=== PATIENT | male | born 1965 | race Caucasian/White ===

== ENCOUNTER 2024-07-27 01:17 | Day surgery (SDC) | payer BC, SELFPAY ==
[2024-07-10 12:16] VITALS: BMI 30.3
--- OUTSIDE RECORDS SUMMARY | 2024-07-27 01:20 | XMS_ITS | Referral Summary ---
Author Organization [facility] Address [address] [place] [address] Care Team Providers Care Hand Profiler Name Role Phone Stanley Gross MD Primary Care Provider [phone] Source Comments [facility],non-owned Affiliates and Associated Physician Practices is amultiple site organization consisting of ambulatory clinics and hospital sitesin [place], [place], [place] and [place]. This disclosure is being madepursuant to the Care Everywhere program and may not contain all information available regarding this patient. Last updated 18.[facility] Active Problems Problem Noted Date Diagnosed Date Hyperlipidemia 03/20/2015 Cerebral infarction 03/19/2015 Social History Tobacco Use Types Packs/Day Years Used Date Smoking Tobacco: Never Smokeless Tobacco: Never Alcohol Use Standard Drinks/Week Comments Yes 1.7 (1 standard drink = 0.6 oz p ure alcohol) Sex and Gender Information Value Date Recorded Sex Assigned at Not on file Gender Identity Not on file Sexual Orientation Not on file Last Filed Vital Signs Vital Sign Reading Time Taken Comments Blood Pressure 143/88 05/16/2015 8:55 AM [employer] Pulse 57 05/16/2015 8:55 AM [employer] Temperature 36.3 C (97.3 F) 05/16/2015 8:55 AM [employer] Respiratory Rate 17 03/20/2015 10:00 AM CDT Oxygen Saturation 97% 03/20/2015 10:00 AM CDT Inhaled Oxygen Concentration - - Weight 91.6 kg (202 lb) 05/16/2015 8:55 AM [employer] Height 177.8 cm (5' 10 ) 05/16/2015 8:55 AM [employer] Body Mass Index 28.98 05/16/2015 8:55 AM [employer] Plan of Treatment Not on file Procedures Procedure Name Priority Date/Time Associated Diagnosis Comments LIPID PROFILE Routine 03/19/2015 2:40 AM CDT from Last 3 Months or Most Recently Relevant to Health Maintenance Results * (ABNORMAL) LIPID PROFILE (03/19/2015 2:40 AM CDT) Cholesterol Total 169 <200 mg/dL [facility] HDL 52 >40 mg/dL [facility] Comment: ATP III Classification of HDL Cholesterol: <40 mg/dL: Considered a major risk factor. >60 mg/dL: Considered a negative risk factor. LDL Calculated 101(H) <100 mg/dL [facility] Comment: ATP III Classification of LDL Cholesterol: <100 mg/dL: Optimal 100 - 129 mg/dL: Near Optimal/Above Optimal 130 - 159 mg/dL: Borderline High 160 - 189 mg/dL: High >190 mg/dL: Very High Triglycerides 82 <150 mg/dL [facility] Comment: ATP III Classification of Triglycerides: <150 mg/dL: Normal 150 - 199 mg/dL: Borderline High 200 - 400 mg/dL: High >500 mg/dL: Very High Blood specimen (specimen) BLOOD SPECIMEN / Unknown 03/19/2015 2:40 AM CDT 03/19/2015 2:58 AM CDT Buck Mccurdy MD LAB - CHEMISTRY ADEOLA JIMENEZ [facility] ([place], [place]) Organization Address [facility]/State/[facility] [[email or web address]] Co de Phone Number [address] [phone] from Last 3 Months or Most Recently Relevant to Health Maintenance Care Teams Hand Profiler Relationship Specialty Start Date End Date Stanley Gross MD [facility] [place] [address] PCP - General 03/18/15
--- OUTSIDE RECORDS SUMMARY | 2024-07-27 01:20 | XMS_ITS | Patient Health Summary ---
Author Organization [facility] Address [address] [place] [address] Care Team Providers Care Tech Ed Teacher Name Role Phone Stanley Gross MD Primary Care Provider [phone] Note from [facility],non-owned Affiliates and Associated Physician Practices is amultiple site organization consisting of ambulatory clinics and hospital sitesin [place], [place], [place] and [place]. This disclosure is being madepursuant to the Care Everywhere program and may not contain all information available regarding this patient. Last updated 18.[facility] Active Problems Problem Noted Date Diagnosed [...] Comments Blood Pressure 143/88 05/16/2015 8:55 AM DRILL RUNNER Pulse 57 05/16/2015 8:55 AM DRILL RUNNER Temperature 36.3 C (97.3 F) 05/16/2015 8:55 AM DRILL RUNNER Respiratory Rate 17 03/20/2015 10:00 AM CDT Oxygen Saturation 97% 03/20/2015 10:00 AM CDT Inhaled Oxygen Concentration - - Weight 91.6 kg (202 lb) 05/16/2015 8:55 AM DRILL RUNNER Height 177.8 cm (5' 10 ) 05/16/2015 8:55 AM DRILL RUNNER Body Mass Index 28.98 05/16/2015 8:55 AM DRILL RUNNER Procedures * PROC LOOP DEVICE CHECK (REMOTE)(Performed 11/10/2015) * PROC LOOP DEVICE CHECK (REMOTE)(Performed 10/19/2015) * PROC LOOP DEVICE CHECK (REMOTE)(Performed 09/17/2015) * PROC LOOP DEVICE CHECK (REMOTE)(Performed 08/15/2015) * PROC LOOP DEVICE CHECK (REMOTE)(Performed 06/28/2015) * PROC LOOP DEVICE CHECK (REMOTE)(Performed 06/03/2015) * EP LOOP RECORDER IMPLANT(Performed 03/20/2015) * MAGNESIUM BLOOD(Performed 03/20/2015) * BASIC METABOLIC PANEL (CALCIUM TOTAL)(Performed 03/20/2015) * PHOSPHORUS BLOOD(Performed 03/20/2015) * CBC W AUTO DIFFERENTIAL(Performed 03/20/2015) * CBC W AUTO DIFFERENTIAL(Performed 03/20/2015) * TROPONIN I(Performed 03/19/2015) * CK + CKMB PANEL(Performed 03/19/2015) * MRI BRAIN WO CONTRAST(Performed 03/19/2015) * TROPONIN I(Performed 03/19/2015) * CK + CKMB PANEL(Performed 03/19/2015) * DRUG ABUSE PANEL 10-20+ETHANOL URINE NO CONFIRM(Performed 03/19/2015) * URINALYSIS W/MICROSCOPIC NO CULTURE(Performed 03/19/2015) * HEMOGLOBIN A1C(Performed 03/19/2015) * PT-INR [facility](Performed 03/19/2015) * LIPID PROFILE(Performed 03/19/2015) * BASIC METABOLIC PANEL (CALCIUM TOTAL)(Performed 03/19/2015) * PHOSPHORUS BLOOD(Performed 03/19/2015) * MAGNESIUM BLOOD(Performed 03/19/2015) * CBC W AUTO DIFFERENTIAL(Performed 03/19/2015) * CBC W AUTO DIFFERENTIAL(Performed 03/19/2015) * CT ANGIO BRAIN AND NECK(Performed 03/19/2015) * CREATININE BLOOD - POCT (IP) [facility](Performed 03/19/2015) * TROPONIN I(Performed 03/19/2015) * CK + CKMB PANEL(Performed 03/19/2015) * XR CHEST 1VW PORTABLE(Performed 03/19/2015) * ECHO COMPLETE(Performed 03/19/2015) * ECHO SANDRA TRANSESOPHAGEAL(Performed 03/19/2015) * EKG 12-LEAD(Performed 03/19/2015) Results * PROC LOOP DEVICE CHECK (REMOTE) (11/10/2015 11:21 AM CDT) Narrative [facility] - 11/10/2015 11:21 AM CDT 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 The remote transmission from October 15 showed the following results: Baseline Strip: Sinus rhythm Episodes Total: 0, Symptomatic Episodes: 0 Evaluation of Episodes: No events during monitoring period. Please contact me if you have any questions or concerns, thank you. Procedure Note ProviderMega MD - 11/19/2017 Neftali Frank is undergoing termite control servicer monitoring with a Reveal implantableloop recorder. The remote transmission from October 15 showed the followingresults: Baseline Strip: Sinus rhythm Episodes Total: 0, Symptomatic Episodes: 0 Evaluation of Episodes: No events during monitoring period. Please contact me if you have any questions or concerns, thank you. Mateo Johnson CD PROCEDURE/MINOR SURG ICAL ORDERABLES Performing Organization Address [facility] de Phone Number [facility] * PROC LOOP DEVICE CHECK (REMOTE) (10/19/2015 2:28 PM CDT) Narrative [facility] - 10/19/2015 2:28 PM CDT Neftali Frank is undergoing shelter monitoring with a Reveal implantable loop recorder. The remote transmission from September 15 showed the following results: Baseline Strip: Sinus rhythm Episodes Total: 0, Symptomatic Episodes: 0 Evaluation of Episodes: No events during monitoring period. Please contact me if you have any questions or concerns, thank you. Procedure Note ProviderMega MD - 11/19/2017 Neftali Frank is undergoing shelter monitoring with a Reveal implantableloop recorder. The remote transmission from September 15 showed the followingresults: Baseline Strip: Sinus rhythm Episodes Total: 0, Symptomatic Episodes: 0 Evaluation of Episodes: No events during monitoring period. Please contact me if you have any questions or concerns, thank you. Mateo Johnson CD PROCEDURE/MINOR SURG ICAL ORDERABLES Performing Organization Address [facility] de Phone Number [facility] * PROC LOOP DEVICE CHECK (REMOTE) (09/17/2015 3:46 PM CDT) Narrative [facility] - 09/17/2015 3:46 PM CDT Neftali Frank is undergoing shelter monitoring with a Reveal implantable loop recorder. The remote transmission from August 16 showed the following results: Baseline Strip: Sinus rhythm Episodes Total: 0, Symptomatic Episodes: 0 Evaluation of Episodes: No events during monitoring period. Please contact me if you have any questions or concerns, thank you. Procedure Note ProviderMega MD - 11/19/2017 Neftali rFank is undergoing shelter monitoring with a Reveal implantableloop recorder. The remote transmission from August 16 showed the followingresults: Baseline Strip: Sinus rhythm Episodes Total: 0, Symptomatic Episodes: 0 Evaluation of Episodes: No events during monitoring period. Please contact me if you have any questions or concerns, thank you. 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 The remote transmission from July 18 showed the following results: Baseline Strip: Sinus rhythm Episodes Total: 0, Symptomatic Episodes: 0 Evaluation of Episodes: No events during monitoring period. Please contact me if you have any questions or concerns, thank you. Procedure Note ProviderMega MD - 11/19/2017 Neftali Frank is undergoing termite control servicer monitoring with a Reveal implantableloop recorder. The remote transmission from July 18 showed thefollowing results: Baseline Strip: Sinus rhythm Episodes Total: 0, Symptomatic Episodes: 0 Evaluation of Episodes: No events during monitoring period. Please contact me if you have any questions or concerns, thank you. Mateo Johnson CD PROCEDURE/MINOR SURG ICAL ORDERABLES Performing Organization Address [facility] Co de Phone Number [facility] * PROC LOOP DEVICE CHECK (REMOTE) (06/28/2015 8:36 AM DRILL RUNNER) Narrative [facility] - 06/28/2015 8:36 AM DRILL RUNNER Neftali Frank is undergoing shelter monitoring with a Reveal implantable loop recorder. The remote transmission from June 18 showed the following results: Baseline Strip: Sinus rhythm Episodes Total: 0, Symptomatic Episodes: 0 Evaluation of Episodes: No events during monitoring period. Please contact me if you have any questions or concerns, thank you. Procedure Note ProviderMega MD - 11/19/2017 Neftali Frank is undergoing shelter monitoring with a Reveal implantableloop recorder. The remote transmission from June 18 showed thefollowing results: Baseline Strip: Sinus rhythm Episodes Total: 0, Symptomatic Episodes: 0 Evaluation of Episodes: No events during monitoring period. Please contact me if you have any questions or concerns, thank you. 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 The remote transmission from April 19 showed the following results: Baseline Strip: Sinus rhythm. Episodes Total: 0, Symptomatic Episodes: 0 Evaluation of Episodes: No events during monitoring period. Please contact me if you have any questions or concerns, thank you. Procedure Note ProviderMega MD - 11/19/2017 Neftali Frank is undergoing shelter monitoring with a Reveal implantableloop recorder. The remote transmission from April 19 showed thefollowing results: Baseline Strip: Sinus rhythm. Episodes Total: 0, Symptomatic Episodes: 0 Evaluation of Episodes: No events during monitoring period. Please contact me if you have any questions or concerns, thank you. Mateo Johnson CD PROCEDURE/MINOR SURG ICAL ORDERABLES Performing Organization Address [facility] Co de Phone Number [facility] * EP LOOP RECORDER INSERT (03/20/2015 11:59 AM CDT) Anatomical Region Laterality Modality Other Narrative 03/20/2015 11:30 AM CDT ELECTROPHYSIOLOGY LAB DEVICE IMPLANTATION REPORT 03/20/2015 Procedure Performed: Implantation of an implantable vehicle monitor technician. Indication: Neftali Frank is an otherwise healthy 49 y.o. year old man with no past medical history. He is admitted with acute ischemic stroke suspected to be of embolic origin. Work up so far has been negative for systemic thrombus/emboli. He is hence referred for implantation of a loop recorder for diagnosis of possible occult atrial fibrillation. Operators: 1. Mateo Johnson MD 2. Matt Godinez MD Medications: 1% Lidocaine was utilized for local anesthetic. Procedure: The risks and benefits of the procedure were discussed with the patient and the patient consented for the procedure. The patient presented to the electrophysiology laboratory in a fasting, nonsedated state. The patient was prepped and draped in the usual sterile fashion for device implantation. 1% lidocaine was administered to the skin and subcutaneous tissues in the left parasternal area for local anesthesia. The supplied puncture blade was then used to make a small incision at the left 4th intercostal space just lateral to the sternum. The supplied tunneling tool was then used to make a pocket for the vehicle monitor technician. The vehicle monitor technician was then inserted into the pocket. Testing of the device confirmed adequate signal and the incision was then covered with sterile aquacel dressing. The patient tolerated the procedure well; there were no apparent complications at the end of the procedure. Device Information: The implantable vehicle monitor technician is a Medtronic Reveal Linq with a serial number of [id number], and model number [id number] 11. VT parameter is set at 182 bpm for 16 beats. Bradycardia parameter is set at 30 bpm for 4 beats. R waves were measured at 0.86 mV. Impression: 1. Successful implantation of a Medtronic Reveal Linq ICM. Plan: The outer dressing needs to stay on and dry for 1 week after which it may be removed. Patient has been given instructions regarding how to upload the information gathered from his loop recorder. Please attach the following to the patient's discharge instructions at time of discharge: Loop recorder discharge instructions: 1. The outer dressing needs to stay on and dry for 1 week after which it may be removed. Water can com in contact with the dressing, but refrain from completely submerging the dressing in water. 2. You can not completely submerge the site where you had your device placed in water for a total of 4 weeks. 3. Please let us know if you develop any pain at the site of the loop implantation, or if you develop a fever or discharge from the site. Call us if you have any questions: Working hours (Wednesday - Wednesday 7AM - 5PM) : [phone] (cardiology clinic at the [facility]) After working hours and weekends (5PM - 7AM): [phone], and ask to speak with the nail sticker electrician substation. Matt Godinez MD System Archive Analyst 03/20/2015 Procedure Note Provider, MD Mega - 11/19/2017 ELECTROPHYSIOLOGY LAB DEVICE IMPLANTATION REPORT 03/20/2015 Procedure Performed: Implantation of an implantable vehicle monitor technician. Indication: Neftali Frank is an otherwise healthy 49 y.o. year oldcaucasian man with no past medical history. He is admitted with acuteischemic stroke suspected to be of embolic origin. Work up so far has beennegative for systemic thrombus/emboli. He is hence referred for implantation of a loop recorder for diagnosis ofpossible occult atrial fibrillation. Operators: 1. Mateo Johnson MD 2. Matt Godinez MD Medications: 1% Lidocaine was utilized for local anesthetic. Procedure: The risks and benefits of the procedure were discussed withthe patient and the patient consented for the procedure. The patientpresented to the electrophysiology laboratory in a fasting, nonsedatedstate. The patient was prepped and draped in the usual sterile fashion for device implantation. 1% lidocainewas administered to the skin and subcutaneous tissues in the leftparasternal area for local anesthesia. The supplied puncture blade wasthen used to make a small incision at the left 4th intercostal space just lateral to the sternum. The suppliedtunneling tool was then used to make a pocket for the vehicle monitor technician.The vehicle monitor technician was then inserted into the pocket. Testing of thedevice confirmed adequate signal and the incision was then covered with sterile aquacel dressing. The patienttolerated the procedure well; there were no apparent complications at theend of the procedure. Device Information: The implantable vehicle monitor technician is a Medtronic Reveal Linq with a serialnumber of [id number], and model number [id number] 11. VT parameter is set at 182 bpm for 16 beats. Bradycardia parameter is set at 30 bpm for 4 beats. R waves were measured at 0.86 mV. Impression: 1. Successful implantation of a Medtronic Reveal Linq ICM. Plan: The outer dressing needs to stay on and dry for 1 week after which it maybe removed. Patient has been given instructions regarding how to upload theinformation gathered from his loop recorder. Please attach the following to the patient's discharge instructions attime of discharge: Loop recorder discharge instructions: 1. The outer dressing needs to stay on and dry for 1 week after which itmay be removed. Water can com in contact with the dressing, but refrainfrom completely submerging the dressing in water. 2. You can not completely submerge the site where you had your deviceplaced in water for a total of 4 weeks. 3. Please let us know if you develop any pain at the site of the loopimplantation, or if you develop a fever or discharge from the site. Call us if you have any questions: Working hours (Wednesday - Wednesday 7AM - 5PM) : [phone] [facility] After working hours and weekends (5PM - 7AM): [phone], and ask tospeak with the nail sticker electrician substation. Matt Godinez MD System Archive Analyst 03/20/2015 Buck Mccurdy MD ELECTROPHYS RADIANT * CBC W AUTO DIFFERENTIAL (03/20/2015 3:45 AM CDT) Only the most recent of4 resultswithin the time period is included. Blood specimen (specimen) BLOOD SPECIMEN / Unknown 03/20/2015 3:45 AM CDT Narrative [facility] - 03/20/2015 4:00 AM CDT The following orders were created for panel order CBC w Differential. Procedure Abnormality Status --------- ------ CBC WITH DIFFERENTIAL[[id number]] Abnormal Final result Please view results for these tests on the individual orders. Buck Mccurdy MD LAB - HEMATOLOGY ORD ERABLES [facility] [address] [place] [address], [facility] * BASIC METABOLIC PANEL (CALCIUM TOTAL) (03/20/2015 3:45 AM CDT) Only the most recent of2 resultswithin the time period is included. BUN 11 7 - 26 mg/dL [facility] Creatinine 1.2 0.6 - 1.2 mg/dL [facility] Sodium 141 136 - 145 mmol/L [facility] Potassium 4.0 3.5 - 4.5 mmol/L [facility] Chloride 105 98 - 107 mmol/L [facility] CO2 27 22 - 29 mmol/L [facility] Glucose 102 70 - 115 mg/dL [facility] Calcium 9.4 8.4 - 10.2 mg/dL [facility] Anion Gap 13 8 - 18 [facility] BUN/Creatinine Ratio 9 7 - 23 [facility] Osmolality Calculated 277 270 - 300 mOsm/kg [facility] eGFR >60 >60 mL/min/1.7 3 m2 [facility] Blood specimen (specimen) BLOOD SPECIMEN / Unknown 03/20/2015 3:45 AM CDT 03/20/2015 3:55 AM CDT Buck Mccurdy MD LAB - CHEMISTRY [facility] Performing Organization Address City/[facility]/ZIP Co de Phone Number [address] [phone] * PHOSPHORUS BLOOD (03/20/2015 3:45 AM CDT) Only the most recent of2 resultswithin the time period is included. Phosphorus 3.2 2.3 - 4.7 mg/dL [facility] Blood specimen (specimen) BLOOD SPECIMEN / Unknown 03/20/2015 3:45 AM CDT 03/20/2015 3:55 AM CDT Buck Mccurdy MD LAB - CHEMISTRY [facility] [address] [phone] * MAGNESIUM BLOOD (03/20/2015 3:45 AM CDT) Only the most recent of2 resultswithin the time period is included. Magnesium 2.1 1.6 - 2.6 mg/dL [facility] Blood specimen (specimen) BLOOD SPECIMEN / Unknown 03/20/2015 3:45 AM CDT 03/20/2015 3:55 AM CDT Buck Mccurdy MD LAB - CHEMISTRY [facility] Performing Organization Address [facility] Co de Phone Number [address] [phone] * TROPONIN I (03/19/2015 4:25 PM CDT) Only the most recent of3 resultswithin the time period is included. Troponin I <0.010 <0.032 ng/mL [facility] Blood specimen (specimen) BLOOD SPECIMEN / Unknown 03/19/2015 4:25 PM CDT 03/19/2015 4:35 PM CDT Buck Mccurdy MD LAB - CHEMISTRY [facility] Performing Organization Address [facility] de Phone Number [address] [phone] * CK + CKMB PANEL (03/19/2015 4:25 PM CDT) Only the most recent of3 resultswithin the time period is included. CK Total 151 30 - 200 Units/L [facility] CK-MB 1.4 0.0 - 6.6 ng/mL [facility] Blood specimen (specimen) BLOOD SPECIMEN / Unknown 03/19/2015 4:25 PM CDT 03/19/2015 4:35 PM CDT Buck Mccurdy MD LAB - CHEMISTRY [facility] Performing Organization Address [facility] Co de Phone Number [address] [phone] * MRI BRAIN WO CONTRAST (03/19/2015 12:09 PM CDT) Anatomical Region Laterality Modality Head Other Impressions 03/19/2015 12:37 PM CDT IMPRESSION: 1. Small acute to early subacute infarction in the inferior left cerebellar hemisphere in the territory of the left posterior inferior cerebellar artery (PICA). FLAIR hyperintensity in the left posterolateral medulla is also likely related to the small left PICA territory infarction. No MR evidence of hemorrhagic conversion or significant mass effect. These results were discussed with Dr. Mayorga of neurology by Dr. Nunez on 03/19/15 at 12:30 PM. This report was electronically signed by WOLF NUNEZ M.D. on 03/19/2015 12:37 PM . Narrative 03/19/2015 12:37 PM CDT EXAMINATION: Magnetic resonance imaging (MRI) of the brain without contrast HISTORY: Left hemiataxia and left upper extremity tingling. TECHNIQUE: MRI of the brain was performed without intravenous gadolinium contrast according to standard protocol. FINDINGS: Comparison is made to prior CT angiogram of the head and neck from 03/19/2015. There is a small linear focus of diffusion restriction in the inferior left cerebellar hemisphere with associated T2/FLAIR hyperintensity consistent with small acute infarction (series 41 image 5 and series 301 image 48). No associated mass effect or hemorrhagic conversion. There is a tiny focus of FLAIR hyperintensity in the left posterolateral medulla (series 401 image 3) without clear diffusion restriction. Ventricles are of normal size, shape, and morphology. A few scattered periventricular and subcortical FLAIR hyperintensities are nonspecific but can be seen in setting of small vessel ischemic disease. The corpus callosum and sella appear normal. The craniocervical junction appears normal. The visualized portions of the orbits, mastoids and paranasal sinuses appear normal. Normal flow voids are demonstrated in the carotid arteries and basilar artery. The calvarium and visualized cervical spine appear normal. Procedure Note Wolf Nunez MD - 09/11/2017 EXAMINATION: Magnetic resonance imaging (MRI) of the brain withoutcontrast HISTORY: Left hemiataxia and left upper extremity tingling. TECHNIQUE: MRI of the brain was performed without intravenous gadoliniumcontrast according to standard protocol. FINDINGS: Comparison is made to prior CT angiogram of the head and neckfrom 03/19/2015. There is a small linear focus of diffusion restriction in the inferiorleft cerebellar hemisphere with associated T2/FLAIR hyperintensityconsistent with small acute infarction (series 41 image 5 and series 301image 48). No associated mass effect or hemorrhagic conversion. There is a tiny focus of FLAIR hyperintensity inthe left posterolateral medulla (series 401 image 3) without cleardiffusion restriction. Ventricles are of normal size, shape, andmorphology. A few scattered periventricular and subcortical FLAIR hyperintensities are nonspecific but can be seen insetting of small vessel ischemic disease. The corpus callosum and sellaappear normal. The craniocervical junction appears normal. The visualized portions of the orbits, mastoids and paranasal sinusesappear normal. Normal flow voids are demonstrated in the carotid arteriesand basilar artery. The calvarium and visualized cervical spine appearnormal. IMPRESSION IMPRESSION: 1. Small acute to early subacute infarction in the inferior leftcerebellar hemisphere in the territory of the left posterior inferiorcerebellar artery (PICA). FLAIR hyperintensity in the left posterolateralmedulla is also likely related to the small left PICA territory infarction. No MR evidence of hemorrhagic conversionor significant mass effect. These results were discussed with Dr. Mayorga of neurology by Dr. Nunez on03/19/15 at 12:30 PM. This report was electronically signed by WOLF NUNEZ M.D. on 03/19/201512:37 PM . Buck Mccurdy MD MR ORDERABLES * (ABNORMAL) URINALYSIS W/MICROSCOPIC NO CULTURE (03/19/2015 5:10 AM CDT) Color UA Yellow Straw, Yellow, Colorless, Light Yellow [facility] Clarity UA Clear Clear [facility] Specific [place] UA 1.040(H) 1.001 - 1.030 [facility] pH UA 7.5 5.0 - 8.0 [facility] Protein UA Negative <=20 mg/dL [facility] Glucose UA Negative Negative mg/dL [facility] Ketone UA Trace(A) Negative mg/dL [facility] Bilirubin UA Negative Negative mg/dL [facility] Blood UA Negative Negative [facility] Nitrite UA Negative Negative [facility] Leukocyte Esterase Negative Negative [facility] Urobilinogen UA <2.0 <2.0 mg/dL [facility] RBC UA 3 0 - 8 /HPF [facility] WBC UA 1 0 - 2 /HPF [facility] Squamous Epithelial Cells UA <1 0 - 1 /HPF [facility] Mucus UA Moderate(A) None /LPF [facility] Urine specimen (specimen) URINE SPECIMEN OBTAINED BY CLEAN CATCH PROCEDURE / Unknown 03/19/2015 5:10 AM CDT 03/19/2015 5:10 AM CDT Buck Mccurdy MD LAB - URINALYSIS ORD ERABLES [address] [phone] * DRUG ABUSE PANEL 10-20+ETHANOL URINE NO CONFIRM (03/19/2015 5:10 AM CDT) [facility] Amphetamines Screen Urine Negative Negative: < 1000 ng/mL [facility] Barbiturates Screen Urine Negative Negative: < 200 ng/mL [facility] Benzodiazepine Screen Urine Negative Negative: < 200 ng/mL [facility] Opiates Urine Negative Negative: < 300 ng/mL [facility] Cocaine Metabolites Urine Negative Negative: < 300 ng/mL [facility] Phencyclidine Screen Urine Negative Negative: < 25 ng/ml [facility] Cannabinoids Screen Urine Negative Negative: <50 ng/mL [facility] Methadone Screen Urine Negative Negative: < 300 ng/mL [facility] Urine specimen (specimen) URINE / Unknown 03/19/2015 5:10 AM CDT 03/19/2015 5:10 AM CDT Narrative [facility] - 03/19/2015 5:27 AM CDT FIO2->21 The Urine Toxicology Screening Panel does not screen for Propoxyphene, Meprobamate, Carisoprodol, Trazodone, enlx-lxx-ylobfao medications and/or volatiles (Acetone, Isopropanol, Methanol or Ethylene Glycol). Ethanol, Salicylate, Acetaminophen, Tricyclic Antidepressants and several therapeutic drugs may be individually assayed in serum or plasma specimen. Toxicology testing by the [facility] is an aid to medical diagnosis and treatment of patients. No documented chain of custody was maintained. Results are intended to be used for clinical purposes only. Buck Mccurdy MD LAB - URINE CHEMISTR Y ORDERABLES Performing Organization Address [facility]/ZIP Co de Phone Number [address] [phone] * PT-INR [facility] (03/19/2015 2:40 AM CDT) PT 13.3 12.1 - 14.8 Seconds [facility] INR 1.0 See Comment [facility] Comment: Suggested therapeutic range for low-intensity coumadin therapy for venous thromboembolism prophylaxis is an INR of 2.0-3.0. For high risk patients (Mitral Valve Prosthesis, Atrial Fibrillation, history of TIA/stroke), suggested prophylactic therapeutic range is an INR of 2.5-3.5. Blood specimen (specimen) BLOOD SPECIMEN / Unknown 03/19/2015 2:40 AM CDT 03/19/2015 2:58 AM CDT Narrative [facility] - 03/19/2015 3:26 AM CDT Is patient on Heparin, Argatroban or Dabigatran?->N Buck Mccurdy MD LAB - COAGULATION OR DERABLES Performing Organization Address City/State/[facility] Co de Phone Number [address] [phone] * HEMOGLOBIN A1C (03/19/2015 2:40 AM CDT) Hemoglobin A1c 5.0 4.4 - 6.3 % [facility] Estimated Average Glucose 97 mg/dL [facility] Comment: HbA1c Interpretation: Treatment target values recommended by ADA and other clinical organizations should be used to evaluate metabolic control in patients. Treatment Target Values: Normal : < 5.7% Pre-diabetes: 5.7-6.4% Diabetes: Equal to or greater than 6.5% Reference: [place] [employer] Association Standards of Care in Diabetes -2014 In patients 70 years and older consider HbA1c target range of 7.0-7.5% Reference: Diabetes Mellitus in Older People: Position Statement on behalf of the International Association of Gerontology and Geriatrics (IAGG), the Diabetes Working Constitution Party for Older People (EDWPOP), and the International Task Force of Experts in Diabetes. Manuel Davis et al. J [place] [employer]. 2012 Test results diagnostic of diabetes should be repeated for confirmation. The Tosoh G8 assay for the measurement of HbA1c is a National Glycohemoglobin Standardization Program (NGSP)certified method. Results for patients with HbE disease should be interpreted with caution as this hemoglobinopathy has been shown to interfere with the Tosoh G8 assay. Blood specimen (specimen) BLOOD SPECIMEN / Unknown 03/19/2015 2:40 AM CDT 03/19/2015 2:58 AM CDT Buck Mccurdy MD LAB - CHEMISTRY ADEOLA JIMENEZ Performing Organization Address [facility] Co de Phone Number [address] [phone] * (ABNORMAL) LIPID PROFILE (03/19/2015 2:40 AM CDT) Cholesterol Total 169 <200 mg/dL [facility] HDL 52 >40 mg/dL [facility] Comment: ATP III Classification of HDL Cholesterol: <40 mg/dL: Considered a major risk factor. >60 mg/dL: Considered a negative risk factor. LDL Calculated 101(H) <100 mg/dL [facility] Comment: ATP III Classification of LDL Cholesterol: <100 mg/dL: Optimal 100 - 129 mg/dL: Near Optimal/Above Optimal 130 - 159 mg/dL: Borderline High 160 - 189 mg/dL: High >190 mg/dL: Very High Triglycerides 82 <150 mg/dL [facility] Comment: ATP III Classification of Triglycerides: <150 mg/dL: Normal 150 - 199 mg/dL: Borderline High 200 - 400 mg/dL: High >500 mg/dL: Very High Blood specimen (specimen) BLOOD SPECIMEN / Unknown 03/19/2015 2:40 AM CDT 03/19/2015 2:58 AM CDT Buck Mccurdy MD LAB - CHEMISTRY ADEOLA JIMENEZ Performing Organization Address [facility]/ZIP Co de Phone Number [address] [phone] * CT ANGIO BRAIN AND NECK (03/19/2015 1:55 AM CDT) Anatomical Region Laterality Modality Head Other Impressions 03/19/2015 7:23 AM CDT IMPRESSION: 1. No acute intracranial hemorrhage, significant mass effect or midline shift. 2. Mild atherosclerosis at the carotid bifurcations without significant stenosis. Otherwise, grossly normal head and neck CT angiogram. No aneurysms or vascular occlusions are identified. Preliminary results reported by Dr. Wolfe on 03/19/2015 at 2:16 AM. This report was electronically signed by WOLF NUNEZ M.D. on 03/19/2015 7:23 AM . Narrative 03/19/2015 7:23 AM CDT EXAMINATION: Computed tomography (CT) of the head and neck without and with contrast HISTORY: Clinical concern for ischemic stroke. Left belinda-ataxia and left upper extremity tingling. TECHNIQUE: CT of the head was performed without contrast according to standard protocol. Then CT angiography of the head and neck was obtained after the uneventful administration of 75 mL of Omnipaque 350 intravenous contrast. Three dimensional postprocessing was performed by the technologist and sent to the workstation for review. FINDINGS: No prior study is available for comparison. Head and neck: No acute intra- or extra-axial fluid collections are identified. The ventricles are of normal size, shape, and morphology. The basal cisterns are patent. No mass effect or midline shift is seen. The ahumada-white matter differentiation is normal. The visualized portions of the orbits, paranasal sinuses, and mastoids appear normal. No acute fracture is identified. Incidental note is made of azygos lobe in the right upper lung. Scattered subcentimeter lymph nodes in the neck. Angiographic findings: There is a three-vessel arch. The subclavian arteries appear normal. The right common carotid artery is normal. Mild atherosclerosis of the right carotid bifurcation without significant stenosis. The cervical right internal carotid artery appears normal. The left common carotid artery is normal. Mild atherosclerosis of the left carotid bifurcation with less than 50% stenosis of the proximal left internal carotid artery. The vertebral arteries appear normal. The basilar artery is normal. The posterior cerebral arteries appear normal. The distal right internal carotid artery is normal. The right middle cerebral artery is normal. The right anterior cerebral artery is normal. The anterior communicating artery is normal. The distal left internal carotid artery is normal. The left middle cerebral artery is normal. The left anterior cerebral artery is normal. No aneurysms or other vascular malformations are identified. No vascular occlusions are seen. Procedure Note Wolf Nunez MD - 09/11/2017 EXAMINATION: Computed tomography (CT) of the head and neck without andwith contrast HISTORY: Clinical concern for ischemic stroke. Left belinda-ataxia and leftupper extremity tingling. TECHNIQUE: CT of the head was performed without contrast according tostandard protocol. Then CT angiography of the head and neck was obtainedafter the uneventful administration of 75 mL of Omnipaque 350 intravenouscontrast. Three dimensional postprocessing was performed by the technologist and sent to theworkstation for review. FINDINGS: No prior study is available for comparison. Head and neck: No acute intra- or extra-axial fluid collections are identified. Theventricles are of normal size, shape, and morphology. The basal cisternsare patent. No mass effect or midline shift is seen. The ahumada-white matterdifferentiation is normal. The visualized portions of the orbits, paranasal sinuses, and mastoids appearnormal. No acute fracture is identified. Incidental note is made of azygoslobe in the right upper lung. Scattered subcentimeter lymph nodes in theneck. Angiographic findings: There is a three-vessel arch. The subclavian arteries appear normal. Theright common carotid artery is normal. Mild atherosclerosis of the rightcarotid bifurcation without significant stenosis. The cervical rightinternal carotid artery appears normal. The left common carotid artery is normal. Mild atherosclerosis of theleft carotid bifurcation with less than 50% stenosis of the proximal leftinternal carotid artery. The vertebral arteries appear normal. The basilar artery is normal. The posterior cerebral arteries appearnormal. The distal right internal carotid artery is normal. The rightmiddle cerebral artery is normal. The right anterior cerebral artery isnormal. The anterior communicating artery is normal. The distal left internal carotid artery is normal. The leftmiddle cerebral artery is normal. The left anterior cerebral artery isnormal. No aneurysms or other vascular malformations are identified. Novascular occlusions are seen. IMPRESSION IMPRESSION: 1. No acute intracranial hemorrhage, significant mass effect or midlineshift. 2. Mild atherosclerosis at the carotid bifurcations without significantstenosis. Otherwise, grossly normal head and neck CT angiogram. Noaneurysms or vascular occlusions are identified. Preliminary results reported by Dr. Wolfe on 03/19/2015 at 2:16 AM. This report was electronically signed by WOLF NUNEZ M.D. on 03/19/20157:23 AM . Buck Mccurdy MD CT ORDERABLES * CREATININE BLOOD - POCT (IP) [facility] (03/19/2015 1:48 AM CDT) Creatinine POCT 0.71 0.3 - 1.3 mg/dL [facility] eGFR POCT 60 60 ml/min [facility] 03/19/2015 1:48 AM CDT Buck Mccurdy MD LAB - POINT OF CARE ORDERABLES [facility] * XR CHEST 1VW PORTABLE (03/19/2015 1:18 AM CDT) Anatomical Region Laterality Modality Chest Other Impressions 03/19/2015 4:26 PM CDT Impression: Low lung volumes without focal consolidation. Report dictated by Adithya Shine DO (transporter radiology). This report was approved by Kristina LemaORocio on 03/19/2015 1:30 PM . I, Dr. VEDA LAM M.D. have personally reviewed and interpreted this examination/study. This report was electronically signed by VEDA LAM M.D. on 03/19/2015 4:26 PM . Narrative 03/19/2015 4:26 PM CDT Examination: PX CHEST 1 VW Date: 03/19/2015 1:18 AM History: acute ischemic stroke Findings: Comparison is made with outside hospital x-ray chest on 03/18/2015. An azygos lobe is seen. The lung volumes are low. The lungs are free of focal consolidation bilaterally. No pneumothorax or pleural effusion is seen. The cardiomediastinal silhouette is within normal limits. The visible osseous structures appear intact. Procedure Note Veda Lam MD - 09/11/2017 Examination: PX CHEST 1 VW Date: 03/19/2015 1:18 AM History: acute ischemic stroke Findings: Comparison is made with outside hospital x-ray chest on03/18/2015. An azygos lobe is seen. The lung volumes are low. The lungs are free offocal consolidation bilaterally. No pneumothorax or pleural effusion isseen. The cardiomediastinal silhouette is within normal limits. Thevisible osseous structures appear intact. IMPRESSION Impression: Low lung volumes without focal consolidation. Report dictated by Adithya Shine DO (transporter radiology). This report was approved by Adithya Shine D.O. on 03/19/2015 1:30 PM. I, Dr. VEDA LAM M.D. have personally reviewed and interpreted thisexamination/study. This report was electronically signed by VEDA LAM M.D. on 03/19/20154:26 PM . Buck Mccurdy MD DIAGNOSTIC IMAGING O RDERABLES * ECHO SANDRA TRANSESOPHAGEAL (03/19/2015 12:00 AM CDT) Anatomical Region Laterality Modality Other 03/19/2015 Buck Mccurdy MD ECHOCARDIOGRAPHY RAD IANT * ECHO W DOPPLER AND COLOR FLOW (03/19/2015 12:00 AM CDT) Anatomical Region Laterality Modality Other 03/19/2015 Buck Mccurdy MD ECHOCARDIOGRAPHY RAD IANT * EKG 12-LEAD (03/19/2015 12:00 AM CDT) Pathologist [facility] EKG [facility] Comment: Exam Date/Time: Mar 19 2015 01:08:59 Test Reason : 501-2 Blood Pressure : / mmHG Vent. Rate : 057 BPM Atrial Rate : 057 BPM P-R Int : 144 ms QRS Dur : 100 ms QT Int : 464 ms P-R-T Axes : 064 -36 032 degrees QTc Int : 451 ms Sinus bradycardia Left axis deviation Abnormal ECG No previous ECGs available Confirmed by MD Antionette, Martita ([id number]), visual effects editor VAMSI MUNOZ ([id number]) on 04/03/2015 11:50:24 AM Referred By: SOFIA Confirmed By:Martita Adan MD 03/19/2015 Buck Mccurdy MD ECG ORDERABLES [facility] Care Teams Tech Ed Teacher Relationship Specialty Start Date End Date Stanley Gross MD [address] [place] [address] [phone] PCP - General 03/18/15
--- OUTSIDE RECORDS SUMMARY | 2024-07-27 01:20 | XMS_ITS | Clinical Summary ---
Author Organization [facility] Address [address] [place] [address] Care Team Providers Care Ham Boner Name Role Phone Stanley Gross MD Primary Care Provider [phone] Source Comments [facility],non-owned Affiliates and Associated Physician Practices is amultiple site organization consisting of ambulatory clinics and hospital sitesin [place], [place], [place] and [place]. This disclosure is being madepursuant to the Care Everywhere program and may not contain all information available regarding this patient. Last updated 18.[facility] [employer] Active Problems Problem Noted Date Diagnosed Date [...] Comments Blood Pressure 143/88 05/16/2015 8:55 AM PER DIEM PHYSICAL THERAPIST Pulse 57 05/16/2015 8:55 AM PER DIEM PHYSICAL THERAPIST Temperature 36.3 C (97.3 F) 05/16/2015 8:55 AM PER DIEM PHYSICAL THERAPIST Respiratory Rate 17 03/20/2015 10:00 AM CDT Oxygen Saturation 97% 03/20/2015 10:00 AM CDT Inhaled Oxygen Concentration - - Weight 91.6 kg (202 lb) 05/16/2015 8:55 AM PER DIEM PHYSICAL THERAPIST Height 177.8 cm (5' 10 ) 05/16/2015 8:55 AM PER DIEM PHYSICAL THERAPIST Body Mass Index 28.98 05/16/2015 8:55 AM PER DIEM PHYSICAL THERAPIST Plan of Treatment Health Maintenance Due Date Last Done Comments COLOGUARD (AGES 45-75) - COL ON CA SCREENING 1966 COLON MONITORING 1966 COLONOSCOPY - COLON CA SCREENING 1966 CT COLONOGRAPHY - COLON CA SCREENING 1966 Colorectal Cancer Screening 1966 FIT - COLON CA SCREENING 1966 FLEX SIG - COLON CA SCREENING 1966 HIV SCREENING 1981 HEPATITIS C SCREENING 11/07/1984 DTAP/TDAP/TD VACCINES (1 - Tdap) 1985 HEPATITIS B VACCINE (1 of 3 - 19+ 3-dose series) 1985 PNEUMOCOCCAL VACCINE 50+ (1 of 1 - PCV) 2016 ZOSTER VACCINE (1 of 2) 2016 LIPID TESTING 03/19/2020 03/19/2015 COVID-19 VACCINE (1 - 2023-2 5 season) 2024 INFLUENZA VACCINE (#1) 2024 DEPRESSION SCREENING 06/14/2024 HIB VACCINE Aged Out No longer eligi ble based on patient's age to complete this topic HPV VACCINE Aged Out No longer eligi ble based on patient's age to complete this topic MENINGOCOCCAL (Group B) VACCINE Aged Out No longer eligible based on patient's age to complete this topic MENINGOCOCCAL VACCINE Aged Out No mily doni eligible based on patient's age to complete this topic PNEUMOCOCCAL VACCINE Aged Out No long er eligible based on patient's age to complete this topic Procedures Procedure Name Priority Date/Time Associated Diagnosis Comments LIPID PROFILE Routine 03/19/2015 2:40 AM CDT from Last 3 Months or Most Recently Relevant to Health Maintenance Results * (ABNORMAL) LIPID PROFILE (03/19/2015 2:40 AM CDT) Cholesterol Total 169 <200 mg/dL [facility] HDL 52 >40 mg/dL [facility] Comment: ATP III Classification of HDL Cholesterol: <40 mg/dL: Considered a major risk factor. >60 mg/dL: Considered a negative risk factor. LDL Calculated 101(H) <100 mg/dL [facility] Comment: ATP III Classification of LDL Cholesterol: <100 mg/dL: Optimal 100 - 129 mg/dL: Near Optimal/Above Optimal 130 - 159 mg/dL: Borderline High 160 - 189 mg/dL: High >190 mg/dL: Very High Triglycerides 82 <150 mg/dL [facility] Comment: ATP III Classification of Triglycerides: <150 mg/dL: Normal 150 - 199 mg/dL: Borderline High 200 - 400 mg/dL: High >500 mg/dL: Very High Blood specimen (specimen) BLOOD SPECIMEN / Unknown 03/19/2015 2:40 AM CDT 03/19/2015 2:58 AM CDT Buck Mccurdy MD LAB - CHEMISTRY ADEOLA Davis Organization Address City/State/ZIP Co de Phone Number [address] [phone] from Last 3 Months or Most Recently Relevant to Health Maintenance Care Teams Ham Boner Relationship Specialty Start Date End Date Stanley Gross MD [facility] [place] [phone] PCP - General 03/18/15
[2024-07-27 06:13] VITALS: BP 139/93; PULSE 72; RESP 20; TEMP 36.1; O2SAT 98
[2024-07-27] MEDS: LACTATED RINGERS 1,000 ML 150 ML IV CONT (06:24)
--- NOTE | 2024-07-27 06:25 | WPDANESEPPF ---
Anes - Initial Pre Proc Eval Procedure: Operation Date: 07/27/24 07:30 Proposed Procedures p Screening Colonoscopy - Moi Glass MD Date/Time: 07/27/24 06:25 Surgeon: Moi Glass MD Pre Op Diagnosis: screening colon Patient Data Age: 58 Gender: M Height: 1.75 m Weight: 94.9 kg Last Vital Signs Temp 36.1 C L 07/27/24 06:13 Pulse 72 07/27/24 06:13 Resp 20 07/27/24 06:13 BP 139/93 H 07/27/24 06:13 Pulse Ox 98 07/27/24 06:13 Allergies Allergy/AdvReac Type Severity Reaction Status Date / Time No Known Allergies Allergy Verified 07/27/24 06:12 Home Medications ?Medication ?Instructions ?Recorded ?Confirmed ?Type aspirin 81 mg chewable tablet 81 mg PO DAILY 10/24/20 07/27/24 History atorvastatin 40 mg tablet See Rx Instructions .Route 06/20/24 07/27/24 Rx .COMPLEX #90 tabs olmesartan 20 See Rx Instructions .Route 06/22/24 07/27/24 Rx mg-hydrochlorothiazide 12.5 mg .COMPLEX #90 tabs tablet Patient hx anesthesia problems: none Family hx anesthesia problems: none Results Review: All pre-operative results and documents have been reviewed as part of the pre-operative evaluation. 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 Obesity (BMI 30.0-34.9) Ventricular hypertrophy Social History Social History Social History: Caffeine-rarely Smoking status: Never smoker Second hand tobacco smoke exposure: No Alcohol intake: current Alcohol use details: a few drinks a month Substance use: never Substance use type: does not use Lack of Food: Never True Current Housing: I Have Housing Concerned About Future Housing: No Difficulty Paying Gas/Electric Bills: No Difficulty Paying for Meds: No Currently Unemployed: No Education: Master's Degree or Higher Difficulty w/ Childcare or Family Care: No Living arrangements: with family Spiritual care concerns: No Anes - Eval Final PreProcedure Day of Procedure 07/27/24 06:25 Patient weight: obese Heart: regular rate and rhythm Lungs: clear to auscultation Airway: Mallampati scale class II Neurological: alert and oriented Last oral intake: >/= 8 hours ASA classification: II Emergent: no Anesthetic plan: proceed Anesthesia type and monitoring: general GIVS and standard monitoring Results Review: All pre-operative results and documents have been reviewed as part of the pre-operative evaluation. Informed Consent: The patient's anesthetic plan and its attendant risks and benefits were discussed with the patient/family/POA. Questions were solicited and answers provided to the satisfaction of the patient/family/POA.
--- NOTE | 2024-07-27 07:30 | PM.IMHP ---
H&P: HPI History of Present Illness Date/Time: 07/27/24 07:30 Chief Complaint: Screening colonoscopy Narrative: This is the patient's first colonoscopy. There are no GI symptoms and there is no family history of colorectal cancer. 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 Obesity (BMI 30.0-34.9) Ventricular hypertrophy Social History Social History Social History: Caffeine-rarely Smoking status: Never smoker Second hand tobacco smoke exposure: No Alcohol intake: current Alcohol use details: a few drinks a month Substance use: never Substance use type: does not use Lack of Food: Never True Current Housing: I Have Housing Concerned About Future Housing: No Difficulty Paying Gas/Electric Bills: No Difficulty Paying for Meds: No Currently Unemployed: No Education: Master's Degree or Higher Difficulty w/ Childcare or Family Care: No Living arrangements: with family Spiritual care concerns: No Meds Home Medications and Allergies Home Medications ?Medication ?Instructions ?Recorded ?Confirmed ?Type aspirin 81 mg chewable tablet 81 mg PO DAILY 10/24/20 07/27/24 History atorvastatin 40 mg tablet See Rx Instructions .Route 06/20/24 07/27/24 Rx .COMPLEX #90 tabs olmesartan 20 See Rx Instructions .Route 06/22/24 07/27/24 Rx mg-hydrochlorothiazide 12.5 mg .COMPLEX #90 tabs tablet Allergies Allergy/AdvReac Type Severity Reaction Status Date / Time No Known Allergies Allergy Verified 07/27/24 06:12 Vital Signs Vital Signs - 24 hr 07/27/24 06:13 Temperature 96.9 F L Pulse Rate 72 Respiratory Rate 20 Blood Pressure 139/93 H Pulse Oximetry 98 Exam Const: General: cooperative and healthy appearing Resp: Effort & Inspection: normal respiratory effort and able to speak in complete sentences Auscultation: clear to auscultation bilaterally Cardio: Rate: regular rate Rhythm: regular rhythm GI: Inspection: normal to inspection GI Palp: No No hepatosplenomegaly present Auscultation: normal bowel sounds Rectal Exam: deferred Skin: General skin exam: normal color Psych: Appearance: grossly normal Mental Status: mental status grossly normal Assessment and Plan Assessment and plan (1) Colon cancer screening: Code(s): Z12.11 - Encounter for screening for malignant neoplasm of colon Status: Acute Assessment and Plan: The patient is deemed a good candidate for the procedure. Consent signed. Will proceed.
[2024-07-27 07:55] VITALS: BP 122/81; PULSE 69; RESP 20; O2SAT 97
[2024-07-27 08:05] VITALS: BP 126/82; PULSE 60; RESP 15; O2SAT 99
[2024-07-27 08:15] VITALS: BP 120/70; PULSE 59; RESP 20; O2SAT 100
== END 2024-07-27 08:29 | disposition home or self-care (01) ==
PROVIDERS: PCP Family Medicine; Visit Provider Internal Medicine Gastroenterology
PROC: 0DJD8ZZ Inspection of Lower Intestinal Tract, Via Natural or Artificial Opening Endoscopic (ICD-10-PCS; CPT 45378; principal; 2024-07-27 07:30)
DX: Z12.11 Encounter for screening for malignant neoplasm of colon (principal); D12.5 Benign neoplasm of sigmoid colon; K62.1 Rectal polyp; K57.30 Diverticulosis of large intestine without perforation or abscess without bleeding; E66.9 Obesity, unspecified; Z68.30 Body mass index [BMI] 30.0-30.9, adult; Z79.82 Long term (current) use of aspirin; Z86.73 Personal history of transient ischemic attack (TIA), and cerebral infarction without residual deficits
CPT/HCPCS: 45385; 88305; J2003; J2704; J7120

== ENCOUNTER 2024-09-24 11:30 | Emergency (ER) | payer BC, SELFPAY ==
--- NOTE | 2024-09-24 11:34 | ED.GENADULT ---
HPI - General Adult General Chief complaint: Upper Respiratory Infection Stated complaint: Cough, Headache Time Seen by Provider: 09/24/24 11:34 Source: patient Mode of arrival: ambulatory Limitations: no limitations History of Present Illness HPI narrative: 58-year-old male patient presents to [facility] with complaints a cough and fatigue for the past 2 weeks. Patient states he had a viral upper respiratory infection back in July and tested negative for all point of care testing. Patient states it did eventually go away after about 2-3 weeks of symptoms. Patient states that it came back about 2 weeks ago denies any fevers body aches or chills. Patient states he has just been feeling fatigued and states that his cough is worse throughout the day denies ear pain, sore throat, chest pain or shortness of breath. Denies abdominal pain nausea vomiting diarrhea. Related Data Home Medications ?Medication ?Instructions ?Recorded ?Confirmed ?Last Taken ?Type aspirin 81 mg chewable tablet 81 mg PO DAILY 10/24/20 07/27/24 07/26/24 History Allergies Allergy/AdvReac Type Severity Reaction Status Date / Time No Known Allergies Allergy Verified 09/24/24 11:41 Review of Systems Review of Systems: CONSTITUTIONAL: Denies fever, chills, or sweats. positive fatigue EYES: Denies visual changes, redness, or discharge. ENT: Positive rhinorrhea, congestion, denies sore throat, or otalgia. CARDIOVASCULAR: Denies chest pain, palpitations, or edema. RESPIRATORY: positive cough denies dyspnea. GASTROINTESTINAL: Denies abdominal pain, nausea, vomiting, or diarrhea. GENITOURINARY: Denies dysuria or hematuria. SKIN: Denies rash or itching. MUSCULOSKELETAL: Denies back pain, joint pain, or myalgia. NEUROLOGIC: Denies headache, numbness, or weakness. PSYCHIATRIC: Denies anxiety or depression. 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 Obesity (BMI 30.0-34.9) Ventricular hypertrophy Social History Social History Social History: Caffeine-rarely Smoking status: Never smoker Second hand tobacco smoke exposure: No Alcohol intake: current Alcohol use details: a few drinks a month Substance use: never Substance use type: does not use Lack of Food: Never True Current Housing: I Have Housing Concerned About Future Housing: No Difficulty Paying Gas/Electric Bills: No Difficulty Paying for Meds: No Currently Unemployed: No Education: Master's Degree or Higher Difficulty w/ Childcare or Family Care: No Living arrangements: with family Spiritual care concerns: No Comments At the time of my signature I agree with nursing past medical history, surgical, social, and family history. There is no relevant family history pertinent to the presenting complaint. Exam Narrative: GENERAL: Well-appearing, well-nourished, and in no acute distress. HEAD: Normocephalic, atraumatic. EYES: PERRLA and EOMI. ENT: Nares with erythema edema noted bilaterally, no rhinorrhea or epistaxis. Mucous membranes moist. posterior pharynx no erythema, tonsillar enlargement, exudates or lesions present. Slight postnasal drip noted. Unable to assess bilateral TMs due to cerumen impaction. NECK: Supple. No lymphadenopathy CHEST: Clear to auscultation. No respiratory distress. HEART: Regular rate and rhythm. No murmur heard. Normal peripheral pulses. ABDOMEN: Soft, nontender, nondistended, normal active bowel sounds. EXTREMITIES: Normal range of motion. No edema. SKIN: Warm, dry, no rash. NEURO: No focal deficits. Alert and oriented x3. Course Course Level of Care: Express Care Visit Vital Signs Vital signs: Vital Signs Temperature 36.6 C 09/24/24 11:42 Pulse Rate 97 09/24/24 11:42 Respiratory Rate 16 09/24/24 11:42 Blood Pressure 123/82 09/24/24 11:42 Pulse Oximetry 98 09/24/24 11:42 Temperature 36.6 C 09/24/24 11:42 Pulse Rate 97 09/24/24 11:42 Respiratory Rate 16 09/24/24 11:42 Blood Pressure 123/82 09/24/24 11:42 Pulse Oximetry 98 09/24/24 11:42 Vital signs reviewed. Medical Decision Making MDM Narrative Medical decision making narrative: Discussed with patient and offered to swab in today for COVID and flu he has declined at this time. Discussed with patient this is most likely viral or possibly allergies that is causing the symptoms we will discharge him home with a steroid and Tessalon Perles to help with the coughing, inflammation and congestion. Patient verbalized understanding denies any other questions or concerns at this time. Differential Diagnosis Differential Diagnosis: Differential diagnosis: Allergic rhinitis, chronic sinusitis, tonsillitis, acute sinusitis, infectious mononucleosis, seasonal influenza, pertussis, diphtheria, meningococcal disease, viral syndrome, viral bronchitis, RSV, COVID-19 Vital Signs Vital Signs: Vital Signs Temperature 36.6 C 09/24/24 11:42 Pulse Rate 97 09/24/24 11:42 Respiratory Rate 16 09/24/24 11:42 Blood Pressure 123/82 09/24/24 11:42 Pulse Oximetry 98 09/24/24 11:42 Temperature 36.6 C 09/24/24 11:42 Pulse Rate 97 09/24/24 11:42 Respiratory Rate 16 09/24/24 11:42 Blood Pressure 123/82 09/24/24 11:42 Pulse Oximetry 98 09/24/24 11:42 Critical Care Time Critical Care Time Critical Care Time: No Discharge Plan Discharge Clinical Impression: Sinusitis Qualifiers: Sinusitis location: unspecified location Chronicity: acute Recurrence: recurrent Qualified Code(s): J01.91 - Acute recurrent sinusitis, unspecified Cough Qualifiers: Cough type: acute Qualified Code(s): R05.1 - Acute cough Patient Disposition: Home Condition: Stable Instructions: Antibiotic Form, Viral Syndrome (ED) Additional Instructions: Viral illness may last between 7-12days; antibiotic is NOT recommended at this time. Recommend antihistamine such as Benadryl at night time and Claritin/Zyrtec/Sola during the day Cough syrup may cause drowsiness; avoid driving or take it at night time. Also, recommend symptomatic treatment includes: rest, fluids, and increase humidity of the air at home. Recommend Acetaminophen or nonsteroidal anti-inflammatory agents (NSAIDs) as directed in the bottle to reduce fever and/pain/headache. Avoid smoking/second-hand smoke. Limit visits to areas with large crowds. Please schedule a follow-up visit with your personal physician for further evaluation and treatment within 3-5days. Including recheck and discussion of your blood pressure. If your symptoms persist, change or worsen significantly before you can contact your personal physician then please, without delay, go to the emergency department for further evaluation. Patient Language: Bulgarian Prescriptions: New benzonatate 200 mg capsule 200 mg PO TID PRN (Reason: cough) 10 Days Qty: 30 0RF prednisone 20 mg tablet 40 mg PO DAILY 5 Days Qty: 10 0RF No Action aspirin 81 mg tablet,chewable 81 mg PO DAILY atorvastatin 40 mg tablet See Rx Instructions .ROUTE .COMPLEX Qty: 90 1RF Dose Instruction: TAKE 1 TABLET BY MOUTH EVERY DAY Rx Instructions: TAKE 1 TABLET BY MOUTH EVERY DAY olmesartan-hydrochlorothiazide 20-12.5 mg tablet See Rx Instructions .ROUTE .COMPLEX Qty: 90 1RF Dose Instruction: TAKE 1 TABLET BY MOUTH EVERY DAY Rx Instructions: TAKE 1 TABLET BY MOUTH EVERY DAY Follow-up/Referrals: Stanley Gross MD [Primary Care Provider] - Time of Disposition: 11:51
[2024-09-24 11:42] VITALS: BP 123/82; PULSE 97; RESP 16; TEMP 36.6; O2SAT 98
== END 2024-09-24 12:00 | disposition home or self-care (01) ==
PROVIDERS: Emergency Provider Nurse Practitioner Family; PCP Family Medicine
DX: J01.91 Acute recurrent sinusitis, unspecified (principal); R05.1 Acute cough; E66.9 Obesity, unspecified; Z68.29 Body mass index [BMI] 29.0-29.9, adult; Z86.73 Personal history of transient ischemic attack (TIA), and cerebral infarction without residual deficits
CPT/HCPCS: 99213; G0463